=== PATIENT | male | born 2000 | race Caucasian/White ===

== ENCOUNTER → 2022-03-05 | Outpatient (CLI) | payer OTHER ==
--- NOTE | 2022-03-05 11:15 | XR ---
EXAMINATION TYPE: XR abdomen acute w cxr DATE OF EXAM: 03/05/2022 CLINICAL HISTORY: Right lower quadrant pain and pressure for 4 to 5 days. Chest pain. TECHNIQUE: Single frontal view of chest is obtained. Supine and upright views of the abdomen are acq uired. COMPARISON: None. FINDINGS: The lungs are grossly clear without pleural effusion or pneumothorax. Cardiac silhouette size appears within normal limits. Osseous structures are intact. Sonogram paucity of bowel gas. Gas seen in nondistended stomach. Scattered gas seen in nondistended s mall and large bowel loops. No free air. No suspicious calcifications. The osseous structures are in tact. IMPRESSION: 1. No acute pulmonary process. 2. Overall nonobstructive bowel gas pattern.
== END | disposition home or self-care (01) ==
LOC: RADXRMAIN 10:44
PROVIDERS: ATTEND Family Medicine
DX: R10.9 Unspecified abdominal pain (principal)
CPT/HCPCS: 74022

== ENCOUNTER → 2022-03-24 | Outpatient (CLI) | payer OTHER ==
--- NOTE | 2022-03-24 08:37 | US ---
EXAMINATION TYPE: US abdomen complete DATE OF EXAM: 03/24/2022 COMPARISON: NONE CLINICAL HISTORY: R74.01 ELEVATED ALT. Elevated LFTs TECHNIQUE: Multiple sonographic images of the abdomen are obtained. FINDINGS: EXAM MEASUREMENTS: Liver Length: 17.5 cm Gallbladder Wall: 0.2 cm CBD: 0.3 cm Spleen: 13.4 cm Right Kidney: 10.2 x 4.5 x 5.4 cm Left Kidney: 11.7 x 4.4 x 4.7 cm FOOD [employer]ER NOTES: Morbidly obese pt Pancreas: Obscured by bowel gas Liver: Difficult to penetrate, upper limits of normal for size Gallbladder: wnl Evidence for sonographic Vernon's sign: No CBD: wnl Spleen: Enlarged Right Kidney: wnl Left Kidney: wnl Upper IVC: wnl Abd Aorta: Proximal portion obscured by overlying bowel gas mid and distal wnl The intrahepatic portion of the IVC and proximal abdominal aorta are within normal limits. There is no evidence of cholelithiasis. Common bile duct is unremarkable. The visualized portions of the anders creas are homogenous. Kidneys are symmetric and free of hydronephrosis. No renal lesions are seen. IMPRESSION: 1. There is evidence of hepatic steatosis. 2. Mild splenomegaly.
--- NOTE | 2022-03-24 08:42 | US ---
EXAMINATION TYPE: US renal artery duplex complet DATE OF EXAM: 03/24/2022 COMPARISON: NONE CLINICAL HISTORY: R03.0 ELEVATED BLOOD PRESSURE READING. Elevated BP MEASUREMENTS: RENAL SIZE: Rt Kidney: 10.5 x 5.7 x 5.0 cm Lt Kidney: 10.7 x 4.1 x 5.0 RESISTANCE INDEX Right: 0.5 Left: 0.6 RA/AO RATIO (< 3.5 ) Right: 0.8 Left: 0.8 RA VELOCITY ( < 180 cm/s) Right: 102.7 Left: 110.0 Very limited exam due to pt morbid obesity (approx 350 lbs), and pt unable to lie still due to nerv ousness Limited views show no evidence of renal artery stenosis IMPRESSION: Limited examination without sonographic evidence to suggest renal artery stenosis at this time.
== END | disposition home or self-care (01) ==
LOC: RADUSWWP 07:20
PROVIDERS: ATTEND Family Medicine
DX: K76.0 Fatty (change of) liver, not elsewhere classified (principal); R16.1 Splenomegaly, not elsewhere classified; R74.01 Elevation of levels of liver transaminase levels
CPT/HCPCS: 76700; 93975

== ENCOUNTER → 2022-04-30 | Outpatient (CLI) | payer OTHER ==
--- NOTE | 2022-04-30 11:22 | CT ---
EXAMINATION TYPE: CT adrenal glands wo/w con CT DLP: 2630 mGycm, Automated exposure control for dose reduction was used. DATE OF EXAM: 04/30/2022 10:53 AM COMPARISON: None CLINICAL INDICATION:Male, 22 years old with history of I10 htn; HTN TECHNIQUE: Axial CT of the abdomen. Sagittal and coronal [facility] Contrast used:70 ml mL of Isovue 300 without and with IV Contrast, Oral contrast used: None FINDINGS: LOWER CHEST: Unremarkable ABDOMEN LIVER: Diffusely hypoattenuating parenchyma. GALLBLADDER AND BILE DUCTS: Unremarkable. PANCREAS: Unremarkable. SPLEEN: Unremarkable. ADRENAL GLANDS: No adrenal nodules are identified. KIDNEYS AND URETERS: No evidence of hydronephrosis or renal calculus. Left renal cyst. STOMACH AND BOWEL: No evidence of bowel obstruction. PERITONEUM: No evidence of pneumoperitoneum or free fluid. VASCULATURE: No evidence of aortic aneurysm. MUSCULOSKELETAL: No acute osseous abnormalities. LYMPH NODES: No gross evidence for lymphadenopathy. Nonspecific prominent lymph nodes are seen within the visualized mesentery. SOFT TISSUE/ABDOMINAL WALL: Unremarkable IMPRESSION: 1. No definitive evidence for adrenal nodules. Consider 68Ga-DOTATATE PET/CT for higher sensitivity scan for neuroendocrine tumor. 2. Hepatic steatosis.
== END | disposition home or self-care (01) ==
LOC: RADUSWWP 08:39
PROVIDERS: ATTEND Internal Medicine
DX: K76.0 Fatty (change of) liver, not elsewhere classified (principal); I10 Essential (primary) hypertension
CPT/HCPCS: 74170; Q9967

== ENCOUNTER 2022-06-09 12:59 | Emergency (ER) | payer OTHER ==
[2022-06-09] MEDS ORDERED: methylPREDNISolone SOD SUCCI 125 MG/2 ML VIAL IV STA (13:13)
[2022-06-09] MEDS ORDERED: SODIUM CHLORIDE 0.9% 1,000 ML IV STA ×2 (13:13→14:48)
[2022-06-09] MEDS ORDERED: FAMOTIDINE 20 MG/2 ML VIAL IV STA (13:13)
[2022-06-09] MEDS ORDERED: diphenhydrAMINE 50 MG/ML 1 ML VIAL IVP STA ×2 (13:13→13:53)
--- NOTE | 2022-06-09 13:33 | ED ---
Allergic Reaction HPI - General Chief complaint: Allergic Reaction Stated complaint: Allergic Reaction,SARANYA Time Seen by Provider: 06/09/22 13:13 Source: patient, RN notes reviewed Mode of arrival: ambulatory Limitations: no limitations - History of Present Illness Initial Comments: Patient is a pleasant 22-year-old male presenting to the emergency room with his mother via private vehicle after accidentally ingesting tree nuts which he is ALLERGIC to. He has not had an ALLERGIC reaction in many years and is diligent about avoiding his allergens consequently he does not have an EpiPen. He reports feeling a tingling sensation around his lips, increase in difficulty in breathing an increase in chronic tachycardia along with increase in anxiety since ingestion of the not product. He denies any chest pain, nausea, or vomiting. In addition to his anaphylactic ALLERGIES he has a past medical history significant for anxiety and depression with recent medication adjustments; he has chronic tachycardia and hypertension. - Related Data Home Medications Medication Instructions Recorded Confirmed FLUoxetine HCL [PROzac] 40 mg PO DAILY 06/09/22 06/09/22 Potassium Chloride ER [K-Dur 10] 20 meq PO DAILY 06/09/22 06/09/22 hydroCHLOROthiazide [Hydrodiuril] 25 mg PO DAILY 06/09/22 06/09/22 Previous Rx's Medication Instructions Recorded EPINEPHrine (Auto Inject) [Epipen] 0.3 mg IM ONCE PRN 1 Days #2 each 06/09/22 Allergies Allergy/AdvReac Type Severity Reaction Status Date / Time peanut Allergy Anaphylaxis Verified 06/09/22 15:09 shellfish derived [Shellfish] Allergy Anaphylaxis Verified 06/09/22 15:09 tree nut Allergy Anaphylaxis Verified 06/09/22 15:09 Review of Systems ROS Statement: Those systems with pertinent positive or pertinent negative responses have been documented in the HPI. ROS Other: All systems not noted in ROS Statement are negative. Past Medical History Past Medical History: Hypertension History of Any Multi-Drug Resistant Organisms: None Reported Past Surgical History: Tonsillectomy Additional Past Surgical History / Comment(s): testicular surgery for undescended testicle Past Psychological History: Anxiety Smoking Status: Never smoker Past Alcohol Use History: None Reported Past Drug Use History: None Reported General Exam Limitations: no limitations General appearance: alert, in no apparent distress, other (Mild sweating noted) Head exam: Present: atraumatic, normocephalic, normal inspection Eye exam: Present: normal appearance, PERRL, EOMI. Absent: scleral icterus, conjunctival injection, periorbital swelling ENT exam: Present: normal exam, normal oropharynx, mucous membranes moist Neck exam: Present: normal inspection. Absent: tenderness, meningismus, lymphadenopathy Respiratory exam: Present: normal lung sounds bilaterally. Absent: respiratory distress, wheezes, rales, rhonchi, stridor Cardiovascular Exam: Present: normal rhythm, tachycardia, normal heart sounds. Absent: systolic murmur, diastolic murmur, rubs, gallop, clicks GI/Abdominal exam: Present: soft, normal bowel sounds. Absent: distended, tenderness, guarding, rebound, rigid Extremities exam: Present: normal inspection, full ROM, normal capillary refill. Absent: tenderness, pedal edema, joint swelling, calf tenderness Back exam: Present: normal inspection Neurological exam: Present: alert, oriented X3, CN II-XII intact Psychiatric exam: Present: anxious Skin exam: Present: rash (Slight erythemic rash perioral no other macular papular rashes noted.) Course Vital Signs 06/09/22 06/09/22 06/09/22 13:01 14:27 16:00 Temperature 96.5 F L Pulse Rate 154 H 129 H 125 H Respiratory 22 20 18 Rate Blood Pressure 144/98 137/100 124/90 O2 Sat by Pulse 97 97 97 Oximetry 06/09/22 16:57 Temperature 98.8 F Pulse Rate 126 H Respiratory 18 Rate Blood Pressure 124/98 O2 Sat by Pulse 95 Oximetry - Reevaluation(s) Reevaluation #1: Symptoms including heart rate and epigastric fullness along with mild lip swelling improving heart rate continues at 120 to 130 with increase anxiety will give second dose of IV Benadryl and monitor response. Time: 13:52 Reevaluation #2: Overall patient feeling much better still with some mild anxiety and tachycardic but he reports that baseline and currently being worked up outpatient. He feels comfortable for discharge home. Time: 16:34 Medical Decision Making - Medical Decision Making 22-year-old male presented to the emergency room with ALLERGIC r eaction to tree nuts no EpiPen at home for administration. Presenting to the emergency room immediately without any administration of any antihistamines either. Feeling as though tongue is swelling without obvious tongue swelling on exam. Will give alert G cocktail of IV hydration, Benadryl, IV Pepcid and Solu- Medrol. Due to tachycardia will place on heart monitor. Patient feeling better however continues to have some tachycardia with heart rate in the 120s. Will give additional IV fluid bolus and IV Benadryl along with checking of CBC and BMP. Sinus tachycardic on the monitor no indication for EKG or cardiac enzymes are for a cardiac workup in the absence of shortness of breath or chest pain along with known tachycardia history. Patient overall feeling well after second IV fluid bolus and Benadryl. Still with tachycardia with rate in the 110s to 120s however patient states this is baseline heart rate especially in the setting of anxiety which he is anxious about continuing to be in the hospital despite feeling better. Discussed risks benefits of discharged with tachycardia. Patient is agreeable for discharge home with follow-up with his primary care provider. Will discharge patient home in stable condition with an EpiPen prescription. Advised to continue to avoid allergens and follow-up with his primary care provider. Case discussed with Dr. Summers - Lab Data Result diagrams: 06/09/22 15:27 06/09/22 15:27 Lab Results 06/09/22 06/09/22 Range/Units 15:27 15:27 WBC 10.3 (3.8-10.6) k/uL RBC 5.62 (4.30-5.90) m/uL Hgb 15.3 (13.0-17.5) gm/dL Hct 43.7 (39.0-53.0) % MCV 77.8 L (80.0-100.0) fL MCH 27.2 (25.0-35.0) pg MCHC 34.9 (31.0-37.0) g/dL RDW 13.7 (11.5-15.5) % Plt Count 282 (150-450) k/uL MPV 7.6 Neutrophils % 86 % Lymphocytes % 12 % Monocytes % 1 % Eosinophils % 0 % Basophils % 0 % Neutrophils # 8.8 H (1.3-7.7) k/uL Lymphocytes # 1.2 (1.0-4.8) k/uL Monocytes # 0.1 (0-1.0) k/uL Eosinophils # 0.0 (0-0.7) k/uL Basophils # 0.0 (0-0.2) k/uL Sodium 141 (137-145) mmol/L Potassium 3.5 (3.5-5.1) mmol/L Chloride 103 (98-107) mmol/L Carbon Dioxide 26 (22-30) mmol/L Anion Gap 12 mmol/L BUN 18 (9-20) mg/dL Creatinine 0.77 (0.66-1.25) mg/dL Est GFR (CKD-EPI)AfAm >90 (>60 ml/min/1.73 sqM) Est GFR (CKD-EPI)NonAf >90 (>60 ml/min/1.73 sqM) Glucose 128 H (74-99) mg/dL Calcium 9.4 (8.4-10.2) mg/dL Disposition Clinical Impression: Allergic reaction Disposition: HOME SELF-CARE Condition: Stable Instructions (If sedation given, give patient instructions): Anaphylaxis (ED), Allergic Rhinitis (ED), Allergic Esophagitis (ED) Additional Instructions: Please return to the Emergency Department if symptoms worsen or any other concerns. Please follow-up with your primary care provider. Please drink plenty of fluids. May utilize Benadryl [id number] as needed for any continued ALLERGIC symptoms later this evening. Please avoid allergens when possible. Utilize EpiPen as prescribed for ALLERGIC response if it occurs again and seek immediate medical attention afterwards. Prescriptions: EPINEPHrine (Auto Inject) [Epipen] 0.3 mg IM ONCE PRN 1 Days #2 each PRN Reason: Anaphylaxis Is patient prescribed a controlled substance at d/c from ED?: No Referrals: Nancy Kwok MD [Primary Care Provider] - 1-2 days Time of Disposition: 16:43
[2022-06-09 15:37] LABS: Basophils % (A) 0 %; Eosinophils % (A) 0 %; HCT 43.7 % (39.0-53.0); HGB 15.3 gm/dL (13.0-17.5); Lymphocytes # (A) 1.2 k/uL (1.0-4.8); Lymphocytes % (A) 12 %; MCH 27.2 pg (25.0-35.0); MCHC 34.9 g/dL (31.0-37.0); MCV 77.8 fL (80.0-100.0); Mean Platelet Volume 7.6; Monocytes # (A) 0.1 k/uL (0-1.0); Monocytes % (A) 1 %; Neutrophils # (A) 8.8 k/uL (1.3-7.7); Neutrophils % (A) 86 %; Platelet Count 282 k/uL (150-450); RBC 5.62 m/uL (4.30-5.90); RDW 13.7 % (11.5-15.5); WBC 10.3 k/uL (3.8-10.6)
[2022-06-09 16:10] VITALS: RESP 18
[2022-06-09 16:12] LABS: African American GFR (CKD) >90 (>60 ml/min/1.73 sqM); Anion Gap 12 mmol/L; Blood Urea Nitrogen 18 mg/dL (9-20); Calcium 9.4 mg/dL (8.4-10.2); Carbon Dioxide 26 mmol/L (22-30); Chloride 103 mmol/L (98-107); Glucose 128 mg/dL (74-99); Non-African American GFR(CKD) >90 (>60 ml/min/1.73 sqM); Potassium 3.5 mmol/L (3.5-5.1); Sodium 141 mmol/L (137-145)
[2022-06-09 17:00] VITALS: BP 124/98; PULSE 126; TEMP 98.8
== END 2022-06-09 17:05 | disposition home or self-care (01) ==
LOC: EC 12:59
DX: T78.40XA Allergy, unspecified, initial encounter (principal); I10 Essential (primary) hypertension; F41.9 Anxiety disorder, unspecified; F32.A Depression, unspecified; Z79.899 Other long term (current) drug therapy; Z91.010 Allergy to peanuts; Z91.013 Allergy to seafood; Z91.018 Allergy to other foods
CPT/HCPCS: 99283; 96374; 96375 ×2; 96361; 36415; 80048; 85025; 96376; J1200; J2930

== ENCOUNTER 2024-03-08 15:51 | Emergency (ER) | payer OTHER ==
[2024-03-08 16:01] VITALS: RESP 18
--- NOTE | 2024-03-08 16:32 | XR ---
EXAMINATION TYPE: XR chest 2V DATE OF EXAM: 03/08/2024 4:28 PM CLINICAL INDICATION: Male, 24 years old with history of SARANYA; [facility] COMPARISON: None TECHNIQUE: XR chest 2V Frontal view of the chest. FINDINGS: Lungs/Pleura: There is no evidence of pleural effusion, focal consolidation, or pneumothorax. Pulmonary vascularity: Unremarkable. Heart/mediastinum: Cardiomediastinal silhouette is unremarkable. Musculoskeletal: No acute osseous pathology. IMPRESSION: No acute cardiopulmonary disease/process.
--- NOTE | 2024-03-08 16:36 | ED ---
Anxiety HPI - General Chief Complaint: Anxiety Stated Complaint: anxiety Time Seen by Provider: 03/08/24 16:02 Source: patient, RN notes reviewed Mode of arrival: ambulatory Limitations: no limitations - History of Present Illness Initial Comments: This is a 24-year-old male who presents to the emergency department for anxiety. Patient has dealt with anxiety for many years and is currently being treated with Prozac and as needed hydroxyzine. States that this is usually effective, however over the last 2 weeks he has been increasingly anxious and the hydroxyzine has not been working. He did just have his 1 year anniversary with his girlfriend and wonders if that may have made him anxious, but is not sure why it would have and otherwise denies any changes in his life. Denies any suicidal or homicidal ideations. States that he spoke with his therapist about his concerns and was advised to come to the emergency department for screening. He does note that his allergies have been acting up on him, which makes him feel like he cannot breathe, which also makes him more panicky than usual. MD Complaint: anxiety - Related Data Home Medications: Home Medications Medication Instructions Recorded Confirmed FLUoxetine HCL [PROzac] 40 mg PO DAILY 06/09/22 06/09/22 Potassium Chloride ER [K-Dur 10] 20 meq PO DAILY 06/09/22 06/09/22 hydroCHLOROthiazide [Hydrodiuril] 25 mg PO DAILY 06/09/22 06/09/22 Previous Rx's Medication Instructions Recorded EPINEPHrine (Auto Inject) [Epipen] 0.3 mg IM ONCE PRN 1 Days #2 each 06/09/22 Allergies/Adverse Reactions: Allergies Allergy/AdvReac Type Severity Reaction Status Date / Time peanut Allergy Anaphylaxis Verified 03/08/24 16:02 shellfish derived [Shellfish] Allergy Anaphylaxis Verified 03/08/24 16:02 tree nut Allergy Anaphylaxis Verified 03/08/24 16:02 Review of Systems ROS Statement: Those systems with pertinent positive or pertinent negative responses have been documented in the HPI. ROS Other: All systems not noted in ROS Statement are negative. Past Medical History Past Medical History: Hypertension History of Any Multi-Drug Resistant Organisms: None Reported Past Surgical History: Tonsillectomy Additional Past Surgical History / Comment(s): testicular surgery for undescended testicle Past Psychological History: Anxiety Smoking Status: Never smoker Past Alcohol Use History: None Reported Past Drug Use History: None Reported General Exam Limitations: no limitations General appearance: alert, anxious Respiratory exam: Present: normal lung sounds bilaterally. Absent: respiratory distress, wheezes, rales, rhonchi, stridor Cardiovascular Exam: Present: regular rate, normal rhythm, normal heart sounds. Absent: systolic murmur, diastolic murmur, rubs, gallop, clicks Neurological exam: Present: alert, oriented X3, CN II-XII intact Psychiatric exam: Present: anxious Skin exam: Present: warm, dry, intact, normal color. Absent: rash Course Vital Signs 03/08/24 03/08/24 03/08/24 15:57 17:29 18:56 Temperature 98.0 F 98.0 F 98.1 F Pulse Rate 49 L 71 68 Respiratory 18 18 18 Rate Blood Pressure 148/97 131/95 136/94 O2 Sat by Pulse 95 99 99 Oximetry Medical Decision Making - Medical Decision Making This is a 24 year old male who presents to the emergency department for anxiety. Was pt. sent in by a medical professional or institution? @ -His therapist Did you speak to anyone other than the patient for history? @ -No Did you review nursing and triage notes? @ -Yes, and I agree, it is accurate with regards to the patient's symptoms. Were old charts reviewed? @ -No Differential Diagnosis? @ -Differential Mental Health: Depression, anxiety, bipolar, psychosis, schizophrenia, borderline personality, situational depression, adjustment disorder, behavioral disorder, brain tumor, malingering, substance abuse, encephalopathy, medication reaction, dementia, hypothyroidism, degenerative neurologic disorder, lupus.... This is not meant to be all-inclusive list EKG interpreted by me (3pts min.)? @ -Not obtained X-rays interpreted by me (1pt min.)? @ -Chest x-ray obtained, my interpretation identifies no localized consolidations or infiltrates. CT interpreted by me (1pt min.)? @ -Not obtained U/S interpreted by me (1pt. min.)? @ -Not obtained What testing was considered but not performed? (CT, X-rays, U/S, labs)? Why? @ -None What meds were considered but not given? Why? @ -None Did you discuss the management of the patient with other professionals? @ -Yes, Ava with [facility], who advised that the patient is cleared for discharge home and safety plan was completed. Did you reconcile home meds? @ -No Was smoking cessation discussed for >3mins.? @ -No Was critical care preformed (if so, how long)? @ -No Were there social determinants of health that impacted care today? How? (Homelessness, low income, unemployed, alcoholism, drug addiction, transportation, low edu. Level, literacy, decrease access to med. care, correction, rehab)? @ -No Was there de-escalation of care discussed even if they declined? (Discuss DNR or withdrawal of care, Hospice)? @ -No What co-morbidities impacted this encounter? (DM, HTN, Smoking, COPD, CAD, Cancer, CVA, Hep., AIDS, mental health diagnosis, sleep apnea, morbid obesity)? @ -Generalized anxiety disorder, OCD, allergies Was patient admitted / discharged? @ -Discharged. Given his concern for shortness of breath, chest x-ray was obtained. This revealed no acute process. Patient's BAT was 0.0 and he was cleared for [facility] evaluation. [facility] evaluated the patient and advised that he does not meet criteria for inpatient psychiatric hospitalization. They did a safety plan and provided the patient with resources. They also advised that he can increase his hydroxyzine use and had not been taking as much as he can. Patient was comfortable with discharge home at that point. We did discuss other allergy treatments such as Flonase, azelastine, and cromolyn nasal sprays. Nba fleming discharged home in stable condition and will follow up with his PCP and therapist. Case discussed with ED attending, Dr. Kelsey. Return precautions reviewed in depth, the patient is instructed to return to the emergency department with any new, worsening, or concerning symptoms. Patient verbalized understanding. Undiagnosed new problem with uncertain prognosis? @ -None Drug Therapy requiring intensive monitoring for toxicity (Heparin, Nitro, Insulin, Cardizem)? @ -None Were any procedures done? @ -None Diagnosis/symptom? @ -Generalized anxiety disorder, seasonal allergies Acute, or Chronic, or Acute on Chronic? @ -Chronic Uncomplicated (without systemic symptoms) or Complicated (systemic symptoms)? @ -Uncomplicated Side effects of treatment? @ -None Exacerbation, Progression, or Severe Exacerbation] @ -Exacerbation Poses a threat to life or bodily function? @ -Not at this time - Radiology Data Radiology results: report reviewed, image reviewed Disposition Clinical Impression: Acute anxiety, Seasonal allergies Disposition: HOME SELF-CARE Instructions (If sedation given, give patient instructions): Generalized Anxiety Disorder (ED), Allergies (ED), Panic Attack (ED) Additional Instructions: Return to the emergency department with any new, worsening, or concerning symptoms. Make sure you take your hydroxyzine as needed when you feel anxious. You can try [id number] Flonase, azelastine, or cromolyn nasal spray to see if those are effective for your allergies. Follow up with your primary care provider in 1-2 days. Is patient prescribed a controlled substance at d/c from ED?: No Referrals: Nancy Kwok MD [Primary Care Provider] - 1-2 days Time of Disposition: 18:36
[2024-03-08 18:59] VITALS: BP 136/94; PULSE 68; TEMP 98.1
== END 2024-03-08 18:59 | disposition home or self-care (01) ==
LOC: EC 15:51
CPT/HCPCS: 71046; 82075; 99283

== ENCOUNTER 2024-05-04 13:28 | Emergency (ER) | payer OTHER ==
[2024-05-04 13:38] VITALS: TEMP 98.6
--- NOTE | 2024-05-04 14:21 | ED ---
General Adult HPI - General Chief complaint: Psychiatric Symptoms Stated complaint: Anxiety Time Seen by Provider: 05/04/24 13:41 Source: patient, family, RN notes reviewed Mode of arrival: ambulatory Limitations: no limitations - History of Present Illness Initial comments: Patient is a 24-year-old male present to the emergency department with concerns for anxiety. Onset of symptoms was chronic, worse the past week. Patient has not been sleeping well. Patient eats and drinks somewhat normally. No hallucinations. No suicidal or homicidal thoughts. No alcohol or street drug use. Patient has been prescribed Ativan however has not taken it because he is too anxious and thinks he will not wake up. - Related Data Home Medications Medication Instructions Recorded Confirmed FLUoxetine HCL [PROzac] 40 mg PO DAILY 06/09/22 06/09/22 Potassium Chloride ER [K-Dur 10] 20 meq PO DAILY 06/09/22 06/09/22 hydroCHLOROthiazide [Hydrodiuril] 25 mg PO DAILY 06/09/22 06/09/22 Previous Rx's Medication Instructions Recorded EPINEPHrine (Auto Inject) [Epipen] 0.3 mg IM ONCE PRN 1 Days #2 each 06/09/22 Allergies Allergy/AdvReac Type Severity Reaction Status Date / Time latex Allergy Rash/Hives Verified 05/04/24 13:38 peanut Allergy Anaphylaxis Verified 03/08/24 16:02 shellfish derived [Shellfish] Allergy Anaphylaxis Verified 03/08/24 16:02 tree nut Allergy Anaphylaxis Verified 03/08/24 16:02 Review of Systems ROS Statement: Those systems with pertinent positive or pertinent negative responses have been documented in the HPI. ROS Other: All systems not noted in ROS Statement are negative. Constitutional: Denies: fever ENT: Denies: ear pain Respiratory: Denies: cough, dyspnea Cardiovascular: Denies: chest pain Endocrine: Denies: fatigue Psychiatric: Reports: anxiety. Denies: auditory hallucinations, visual hallucinations, homicidal thoughts, suicidal thoughts Past Medical History Past Medical History: Asthma, Hypertension Additional Past Medical History / Comment(s): OCD, History of Any Multi-Drug Resistant Organisms: None Reported Past Surgical History: Tonsillectomy Additional Past Surgical History / Comment(s): testicular surgery for undescended testicle Past Psychological History: Anxiety, Depression Smoking Status: Never smoker Past Alcohol Use History: None Reported Past Drug Use History: None Reported General Exam Limitations: no limitations General appearance: alert, in no apparent distress Head exam: Present: normocephalic Eye exam: Present: normal appearance ENT exam: Present: normal oropharynx Neck exam: Present: normal inspection Respiratory exam: Present: normal lung sounds bilaterally Cardiovascular Exam: Present: tachycardia GI/Abdominal exam: Present: soft. Absent: tenderness Extremities exam: Present: normal inspection. Absent: pedal edema, calf tenderness Neurological exam: Present: alert Psychiatric exam: Present: anxious Skin exam: Present: normal color Course Vital Signs 05/04/24 13:34 Temperature 98.6 F Pulse Rate 127 H Respiratory 18 Rate Blood Pressure 142/82 O2 Sat by Pulse 100 Oximetry Medical Decision Making - Medical Decision Making Was pt. sent in by a medical professional or institution (, PA, PHOTO JOURNALIST, urgent care, hospital, or fpc...) When possible be specific @ -No Did you speak to anyone other than the patient for history (EMS, parent, family, police, friend...)? What history was obtained from this source @ -Family is present and helps provide additional history including patient's habits and symptoms Did you review nursing and triage notes (agree or disagree)? Why? @ -I reviewed and agree with nursing and triage notes Were old charts reviewed (outside hosp., previous admission, EMS record, old EKG, old radiological studies, urgent care reports/EKG's, fpc records)? Report findings @ -No old charts were reviewed Differential Diagnosis (chest pain, altered mental status, abdominal pain women, abdominal pain men, vaginal bleeding, weakness, fever, dyspnea, syncope, headache, dizziness, GI bleed, back pain, seizure, CVA, palpatations, mental health, musculoskeletal)? @ -Differential Mental Health Depression, anxiety, bipolar, psychosis, schizophrenia, borderline personality, situational depression, adjustment disorder, behavioral disorder, brain tumor, malingering, substance abuse, encephalopathy, medication reaction, dementia, hypothyroidism, degenerative neurologic disorder, lupus.... This is not meant to be all-inclusive list EKG interpreted by me (3pts min.). @ -As above X-rays interpreted by me (1pt min.). @ -None done CT interpreted by me (1pt min.). @ -None done U/S interpreted by me (1pt. min.). @ -None done What testing was considered but not performed or refused? (CT, X-rays, U/S, labs)? Why? @ -None What meds were considered but not given or refused? Why? @ -Considered Ativan however patient refuses stating he has his own. Patient did take this in the emergency department Did you discuss the management of the patient with other professionals (professionals i.e. , PA, PHOTO JOURNALIST, lab, RT, psych nurse, social media specialist, chemical reclamation equipment operator, teacher, cra officer, case management rn)? Give summary @ -No Was smoking cessation discussed for >3mins.? @ -No Was critical care preformed (if so, how long)? @ -No Were there social determinants of health that impacted care today? How? (Homelessness, low income, unemployed, alcoholism, drug addiction, transportation, low edu. Level, literacy, decrease access to med. care, shelter, rehab)? @ -No Was there de-escalation of care discussed even if they declined (Discuss DNR or withdrawal of care, Hospice)? DNR status @ -No What co-morbidities impacted this encounter? (DM, HTN, Smoking, COPD, CAD, Cancer, CVA, ARF, Chemo, Hep., AIDS, mental health diagnosis, sleep apnea, morbid obesity)? @ -History of anxiety Was patient admitted / discharged? Hospital course, mention meds given and route, prescriptions, significant lab abnormalities, going to OR and other pertinent info. @ -Patient presents with anxiety with difficulty controlling it however nervous to take his medication. Discussion had with patient regarding meeting with mental health, possible psychiatric admission, providing medication and observing or taking his own. Patient wants to take his own and leave. Patient does not feel he needs to stay or be hospitalized. Undiagnosed new problem with uncertain prognosis? @ -No Drug Therapy requiring intensive monitoring for toxicity (Heparin, Nitro, Insulin, Cardizem)? @ -No Were any procedures done? @ -No Diagnosis/symptom? @ -Anxiety Acute, or Chronic, or Acute on Chronic? @ -Acute Uncomplicated (without systemic symptoms) or Complicated (systemic symptoms)? @ -Default Side effects of treatment? @ -No Exacerbation, Progression, or Severe Exacerbation? @ -No Poses a threat to life or bodily function? How? (Chest pain, [place], [place], pneumonia, PE, COPD, DKA, ARF, appy, cholecystitis, CVA, Diverticulitis, Homicidal, Suicidal, threat to staff... and all critical care pts) @ -No Disposition Clinical Impression: Acute anxiety Disposition: HOME SELF-CARE Condition: Stable Instructions (If sedation given, give patient instructions): Anxiety (ED) Additional Instructions: Please do follow-up with your primary care physician in the next day or 2 for recheck. Please also discuss with your doctor regarding your concern of obstructive sleep apnea. Consider sleep study. Return for uncontrolled anxiety, thoughts of self-harm, worsening symptoms or other concerns Is patient prescribed a controlled substance at d/c from ED?: No Referrals: Nancy Kwok MD [Primary Care Provider] - 1-2 days Time of Disposition: 14:21
[2024-05-04 14:25] VITALS: BP 122/73; PULSE 102; RESP 20
== END 2024-05-04 14:28 | disposition home or self-care (01) ==
LOC: EC 13:28
DX: F41.9 Anxiety disorder, unspecified (principal); Z91.040 Latex allergy status; Z91.010 Allergy to peanuts; Z91.013 Allergy to seafood; Z88.8 Allergy status to other drugs, medicaments and biological substances
CPT/HCPCS: 99285

== ENCOUNTER 2024-10-17 12:19 | Emergency (ER) | payer OTHER ==
[2024-10-17 12:23] VITALS: RESP 18
--- NOTE | 2024-10-17 12:42 | ED ---
General Adult HPI - General Chief complaint: Recheck/Abnormal Lab/Rx Stated complaint: Dizziness Time Seen by Provider: 10/17/24 12:26 Source: patient, family, RN notes reviewed Mode of arrival: ambulatory Limitations: no limitations - History of Present Illness Initial comments: Patient is a 24-year-old male present to the emergency department with concerns for anxiety. Patient states he does have chronic anxiety. Patient did see his doctor and they sent him here for an EKG. Patient states he did have a dizziness episode Tuesday however he is not worried about that. Patient states he does feel anxious, more so now that he is in the emergency department. - Related Data Home Medications Medication Instructions Recorded Confirmed FLUoxetine HCL [PROzac] 40 mg PO DAILY 06/09/22 06/09/22 Potassium Chloride ER [K-Dur 10] 20 meq PO DAILY 06/09/22 06/09/22 hydroCHLOROthiazide [Hydrodiuril] 25 mg PO DAILY 06/09/22 06/09/22 Previous Rx's Medication Instructions Recorded EPINEPHrine (Auto Inject) [Epipen] 0.3 mg IM ONCE PRN 1 Days #2 each 06/09/22 Allergies Allergy/AdvReac Type Severity Reaction Status Date / Time latex Allergy Rash/Hives Verified 10/17/24 12:23 peanut Allergy Anaphylaxis Verified 10/17/24 12:23 shellfish derived [Shellfish] Allergy Anaphylaxis Verified 10/17/24 12:23 tree nut Allergy Anaphylaxis Verified 10/17/24 12:23 Review of Systems ROS Statement: Those systems with pertinent positive or pertinent negative responses have been documented in the HPI. ROS Other: All systems not noted in ROS Statement are negative. Constitutional: Denies: fever Eyes: Denies: eye pain ENT: Denies: ear pain Respiratory: Denies: dyspnea Cardiovascular: Reports: palpitations Gastrointestinal: Denies: abdominal pain Neurological: Reports: as per HPI. Denies: weakness Past Medical History Past Medical History: Asthma, Hypertension Additional Past Medical History / Comment(s): OCD, History of Any Multi-Drug Resistant Organisms: None Reported Past Surgical History: Tonsillectomy Additional Past Surgical History / Comment(s): testicular surgery for undescended testicle Past Psychological History: Anxiety, Depression Smoking Status: Never smoker Past Alcohol Use History: None Reported Past Drug Use History: None Reported General Exam Limitations: no limitations General appearance: alert, in no apparent distress Head exam: Present: atraumatic Eye exam: Present: normal appearance Neck exam: Present: normal inspection Respiratory exam: Present: normal lung sounds bilaterally Cardiovascular Exam: Present: tachycardia, normal heart sounds GI/Abdominal exam: Present: soft. Absent: tenderness Extremities exam: Present: normal inspection. Absent: pedal edema, calf tenderness Neurological exam: Present: alert. Absent: motor sensory deficit Psychiatric exam: Present: anxious (Patient does appear mildly anxious) Skin exam: Present: normal color Course Vital Signs 10/17/24 12:20 Temperature 98.9 F Pulse Rate 125 H Respiratory 18 Rate Blood Pressure 147/89 O2 Sat by Pulse 98 Oximetry EKG Findings - EKG Results: EKG: interpreted by ERMD (Rate 112. Left axis. LVH criteria. Poor R wave progression.), sinus rhythm EKG shows: tachycardia Medical Decision Making - Medical Decision Making Was pt. sent in by a medical professional or institution (, PA, CONTACT OFFICER, urgent care, hospital, or jail...) When possible be specific @ -Patient states he was sent by his primary care physician to have an EKG Did you speak to anyone other than the patient for history (EMS, parent, family, police, friend...)? What history was obtained from this source @ -Mother is present helps provide history including patient has a therapy appointment that he cannot miss today. Did you review nursing and triage notes (agree or disagree)? Why? @ -I reviewed and agree with nursing and triage notes Were old charts reviewed (outside hosp., previous admission, EMS record, old EKG, old radiological studies, urgent care reports/EKG's, jail records)? Report findings @ -No old charts were reviewed Differential Diagnosis (chest pain, altered mental status, abdominal pain women, abdominal pain men, vaginal bleeding, weakness, fever, dyspnea, syncope, headache, dizziness, GI bleed, back pain, seizure, CVA, palpatations, mental health, musculoskeletal)? @ -Differential Palpitations Ventricular arrhythmias, atrial arrhythmias, myocardial infarction, anemia, thyrotoxicosis, electrolyte imbalance, hypokalemia, pulmonary embolism, pulmonary disease, drugs, alcohol, anxiety, stress.... This is not meant to be an all-inclusive list. EKG interpreted by me (3pts min.). @ -As above X-rays interpreted by me (1pt min.). @ -None done CT interpreted by me (1pt min.). @ -None done U/S interpreted by me (1pt. min.). @ -None done What testing was considered but not performed or refused? (CT, X-rays, U/S, labs)? Why? @ -Considered ordering blood work and electrolytes however patient refuses because he has an appointment that he has to go to What meds were considered but not given or refused? Why? @ -Discussion with patient regarding Ativan however he refuses and mother also states she does not feel this is a good idea Did you discuss the management of the patient with other professionals (professionals i.e. , PA, CONTACT OFFICER, lab, RT, psych nurse, clinical social worker, front elevator operator, teacher, contact officer, egg caser)? Give summary @ -No Was smoking cessation discussed for >3mins.? @ -No Was critical care preformed (if so, how long)? @ -No Were there social determinants of health that impacted care today? How? (Homelessness, low income, unemployed, alcoholism, drug addiction, t ransportation, low edu. Level, literacy, decrease access to med. care, [facility], rehab)? @ -No Was there de-escalation of care discussed even if they declined (Discuss DNR or withdrawal of care, Hospice)? DNR status @ -Labs and medications refused, see above What co-morbidities impacted this encounter? (DM, HTN, Smoking, COPD, CAD, Cancer, CVA, ARF, Chemo, Hep., AIDS, mental health diagnosis, sleep apnea, morbid obesity)? @ -History of anxiety Was patient admitted / discharged? Hospital course, mention meds given and route, prescriptions, significant lab abnormalities, going to OR and other per tinent info. @ -Patient presents with tachycardia. Heart rate on EKG 112. Patient states he does feel anxious. Elevated heart rate is likely secondary to this. Patient does not want further evaluation at this time. Patient is recommended to continue his therapy appointment however also do follow-up with his primary care physician in the next day or 2 for recheck. Undiagnosed new problem with uncertain prognosis? @ -No Drug Therapy requiring intensive monitoring for toxicity (Heparin, Nitro, Insulin, Cardizem)? @ -No Were any procedures done? @ -No Diagnosis/symptom? @ -Sinus tachycardia Acute, or Chronic, or Acute on Chronic? @ -Acute Uncomplicated (without systemic symptoms) or Complicated (systemic symptoms)? @ -Complicated with anxiety Side effects of treatment? @ -No Exacerbation, Progression, or Severe Exacerbation? @ -No Poses a threat to life or bodily function? How? (Chest pain, [place], [place], pneumonia, PE, COPD, DKA, ARF, appy, cholecystitis, CVA, Diverticulitis, Homicidal, Suicidal, threat to staff... and all critical care pts) @ -No Disposition Clinical Impression: Sinus tachycardia Disposition: HOME SELF-CARE Condition: Stable Instructions (If sedation given, give patient instructions): Tachycardia (ED), Anxiety (ED) Additional Instructions: Please follow-up with your therapist today as planned. Please also follow-up with your primary care physician again in the next 1 or 2 days for recheck. Consider echo. Return for increased heart rate, chest pain or shortness of breath, increased dizziness, increased heart rate, worsening or changing symptoms or any other concerns. Is patient prescribed a controlled substance at d/c from ED?: No Referrals: Nancy Kwok MD [Primary Care Provider] - 1-2 days Time of Disposition: 12:42
[2024-10-17 12:51] VITALS: BP 118/94; PULSE 112; TEMP 98.8
== END 2024-10-17 12:50 | disposition home or self-care (01) ==
LOC: EC 12:19
DX: R00.0 Tachycardia, unspecified (principal); F41.9 Anxiety disorder, unspecified; Z91.040 Latex allergy status; Z91.010 Allergy to peanuts; Z91.013 Allergy to seafood; Z88.8 Allergy status to other drugs, medicaments and biological substances
CPT/HCPCS: 93005; 99284